=== PATIENT | female | born 1970 ===

== ENCOUNTER → 2024-11-10 | Outpatient (CLI) | payer MEDICARE, OTHER ==
[2024-11-10 13:09] LABS: BASOPHILS ABSOLUTE AUTO 0.01 K/mm3 (0.00-0.23); BASOPHILS PERCENT AUTO 0 % (0-2); EOSINOPHILS ABSOLUTE AUTO 0.07 K/mm3 (0.00-0.68); EOSINOPHILS PERCENT AUTO 1 % (0-6); Hematocrit 35.6 % (33.0-51.0); Hemoglobin 12.3 g/dL (11.5-16.0); IMMATURE GRAN ABSOLUTE AUTO 0.04 K/mm3 (0.00-0.10); IMMATURE GRAN PERCENT AUTO 1 % (0-1); LYMPHOCYTES ABSOLUTE AUTO 1.23 K/mm3 (0.84-5.20); LYMPHOCYTES PERCENT AUTO 21 % (21-46); MONOCYTES ABSOLUTE AUTO 0.43 K/mm3 (0.16-1.47); MONOCYTES PERCENT AUTO 7 % (4-13); Mean Corpuscular HGB Conc 34.6 g/dL (31.5-36.5); Mean Corpuscular Volume 88 fL (80-100); NEUTROPHILS ABSOLUTE AUTO 4.14 K/mm3 (1.96-9.15); NEUTROPHILS PERCENT AUTO 70 % (41-73); NRBC ABSOLUTE 0.00 K/mm3 (0.00-0.02); NRBC Auto 0.0 /100 WBC (0.0-0.2); Platelet Count 233 K/mm3 (150-400); RDW Coefficient Variation 15.4 % (11.7-14.2); RDW Standard Deviation 49.0 fL (35.1-46.3)
[2024-11-10 14:29] LABS: Alanine Aminotransfer (ALT/SGP 23.0 U/L (12-78); Albumin, Blood 3.5 g/dL (3.4-5.0); Albumin/Globulin Ratio 1.0 (0.8-1.8); Anion Gap 10.0 mmol/L (3-11); Aspartate Aminotrans (AST/SGOT 17.0 U/L (12-37); Bilirubin, Total 0.4 mg/dL (0.1-1.0); Blood Urea Nitrogen 6.0 mg/dL (8-24); CO2, Blood 28.0 mmol/L (21-32); Calcium, Blood 7.9 mg/dL (8.5-10.1); Chloride, Blood 104.0 mmol/L (98-108); Creatinine, Blood 0.69 mg/dL (0.40-1.00); Globulin, Blood 3.5 g/dL (2.2-4.0); Glucose, Blood 116.0 mg/dL (70-99); Potassium, Blood 3.0 mmol/L (3.5-5.5); Sodium, Blood 139.0 mmol/L (136-145); Total Protein, Blood 7.0 g/dL (6.4-8.2)
== END ==
LOC: LAB 12:51 → LAB SHORT 12:51
PROVIDERS: Student in an Organized Health Care Education/Training Program
DX: E11.51 Type 2 diabetes mellitus with diabetic peripheral angiopathy without gangrene (principal); R07.9 Chest pain, unspecified
CPT/HCPCS: 80053; 83036; 83880; 84484; 85025

== ENCOUNTER 2024-12-13 15:43 | Observation (INO) | payer MEDICARE, OTHER ==
[~2024-12-13] VITALS: Ht 175.3 cm; Wt 79.6 kg
[2024-12-13] MEDS ORDERED: Ondansetron HCl 2 MG / ML 2ML Vial IV PRN ×2 (16:00→19:35)
[2024-12-13 16:13] LABS: BASOPHILS ABSOLUTE AUTO 0.04 K/mm3 (0.00-0.23); BASOPHILS PERCENT AUTO 1 % (0-2); EOSINOPHILS ABSOLUTE AUTO 0.16 K/mm3 (0.00-0.68); EOSINOPHILS PERCENT AUTO 2 % (0-6); Hematocrit 34.5 % (33.0-51.0); Hemoglobin 11.8 g/dL (11.5-16.0); IMMATURE GRAN ABSOLUTE AUTO 0.04 K/mm3 (0.00-0.10); IMMATURE GRAN PERCENT AUTO 1 % (0-1); LYMPHOCYTES ABSOLUTE AUTO 2.18 K/mm3 (0.84-5.20); LYMPHOCYTES PERCENT AUTO 25 % (21-46); MONOCYTES ABSOLUTE AUTO 0.58 K/mm3 (0.16-1.47); MONOCYTES PERCENT AUTO 7 % (4-13); Mean Corpuscular HGB Conc 34.2 g/dL (31.5-36.5); Mean Corpuscular Volume 89 fL (80-100); NEUTROPHILS ABSOLUTE AUTO 5.87 K/mm3 (1.96-9.15); NEUTROPHILS PERCENT AUTO 66 % (41-73); NRBC ABSOLUTE 0.00 K/mm3 (0.00-0.02); NRBC Auto 0.0 /100 WBC (0.0-0.2); Platelet Count 219 K/mm3 (150-400); RDW Coefficient Variation 15.0 % (11.7-14.2); RDW Standard Deviation 48.9 fL (35.1-46.3)
[2024-12-13 17:29] LABS: Alanine Aminotransfer (ALT/SGP 23.0 U/L (12-78); Albumin, Blood 3.6 g/dL (3.4-5.0); Albumin/Globulin Ratio 1.1 (0.8-1.8); Anion Gap 7.0 mmol/L (3-11); Aspartate Aminotrans (AST/SGOT 18.0 U/L (12-37); Bilirubin, Total 0.3 mg/dL (0.1-1.0); Blood Urea Nitrogen 7.0 mg/dL (8-24); CO2, Blood 26.0 mmol/L (21-32); Calcium, Blood 9.3 mg/dL (8.5-10.1); Chloride, Blood 109.0 mmol/L (98-108); Creatinine, Blood 0.74 mg/dL (0.40-1.00); Globulin, Blood 3.2 g/dL (2.2-4.0); Glucose, Blood 101.0 mg/dL (70-99); Potassium, Blood 3.4 mmol/L (3.5-5.5); Sodium, Blood 139.0 mmol/L (136-145); Total Protein, Blood 6.8 g/dL (6.4-8.2)
[2024-12-13] MEDS ORDERED: Nitroglycerin 1 INCH/GM PKT TOP ONE (17:45)
[2024-12-13] MEDS ORDERED: FLU VACC TS2025-26(6MOS UP)/PF 45 MCG/0.5 ML SYRINGE IM SCH (19:35)
[2024-12-13] MEDS ORDERED: Metoclopramide HCl 5MG / ML 2ML Vial IV PRN (19:35)
[2024-12-13] MEDS ORDERED: Albuterol 2.5 MG/3 ML VIAL INH PRN (19:40)
[2024-12-13] MEDS ORDERED: Morphine Sulfate 4 MG/1 ML Injection IV PRN (20:25)
[2024-12-13] MEDS ORDERED: CLON1 PO (20:58)
[2024-12-13] MEDS ORDERED: TRAZ50 PO (21:00)
[2024-12-13] MEDS ORDERED: Insulin Glargine-Yfgn 100 Unit/mL 3 ML SYR SC SCH (21:00)
[2024-12-13] MEDS ORDERED: Insulin Glargine 100 Unit/ML 3 ML SYR SC SCH (21:00)
[2024-12-13 21:17] VITALS: BP 116/70
[2024-12-13 21:56] LABS: Source, Urine Clean Catch
[2024-12-13 22:04] LABS: Bilirubin, Urine Neg (Neg); Glucose Qualitative, Urine Neg (Neg); Ketones, Urine Neg (Neg); Leukocyte Esterase, Urine 1+ (Neg); Protein, Urine Neg (Neg); Specific Gravity, Urine 1.020 (1.003-1.022); Urobilinogen, Urine NORM (Normal)
[2024-12-13 22:09] LABS: Color, Urine Pale Yellow (P-Yellow)
[2024-12-13 22:10] LABS: Red Blood Cells, Urine 0-2 /hpf (0-2)
[2024-12-13] MEDS ORDERED: CefTRIAXone Sodium 1,000 MG in NS 100 ML IV SCH (23:14)
[2024-12-13] MEDS ORDERED: NS 1,000 ML IV SCH (23:30)
[2024-12-14] VITALS (8 sets, daily range): BP systolic 115–144; BP diastolic 64–93
[2024-12-14] MEDS ORDERED: Insulin Human Lispro 100 Units/ML 3ML Syringe SC SCH
[2024-12-14 04:03] LABS: BASOPHILS ABSOLUTE AUTO 0.02 K/mm3 (0.00-0.23); BASOPHILS PERCENT AUTO 0 % (0-2); EOSINOPHILS ABSOLUTE AUTO 0.19 K/mm3 (0.00-0.68); EOSINOPHILS PERCENT AUTO 3 % (0-6); Hematocrit 35.1 % (33.0-51.0); Hemoglobin 12.1 g/dL (11.5-16.0); IMMATURE GRAN ABSOLUTE AUTO 0.01 K/mm3 (0.00-0.10); IMMATURE GRAN PERCENT AUTO 0 % (0-1); LYMPHOCYTES ABSOLUTE AUTO 2.00 K/mm3 (0.84-5.20); LYMPHOCYTES PERCENT AUTO 32 % (21-46); MONOCYTES ABSOLUTE AUTO 0.51 K/mm3 (0.16-1.47); MONOCYTES PERCENT AUTO 8 % (4-13); Mean Corpuscular HGB Conc 34.5 g/dL (31.5-36.5); Mean Corpuscular Volume 90 fL (80-100); NEUTROPHILS ABSOLUTE AUTO 3.60 K/mm3 (1.96-9.15); NEUTROPHILS PERCENT AUTO 57 % (41-73); NRBC ABSOLUTE 0.00 K/mm3 (0.00-0.02); NRBC Auto 0.0 /100 WBC (0.0-0.2); Platelet Count 213 K/mm3 (150-400); RDW Coefficient Variation 15.1 % (11.7-14.2); RDW Standard Deviation 49.1 fL (35.1-46.3)
[2024-12-14 04:22] LABS: Prothrombin Time Results 11.4 Sec (9.7-11.5)
[2024-12-14 04:33] LABS: Alanine Aminotransfer (ALT/SGP 22.0 U/L (12-78); Albumin, Blood 3.4 g/dL (3.4-5.0); Albumin/Globulin Ratio 1.1 (0.8-1.8); Anion Gap 7.0 mmol/L (3-11); Aspartate Aminotrans (AST/SGOT 14.0 U/L (12-37); Bilirubin, Total 0.3 mg/dL (0.1-1.0); Blood Urea Nitrogen 5.0 mg/dL (8-24); CO2, Blood 26.0 mmol/L (21-32); Calcium, Blood 8.7 mg/dL (8.5-10.1); Chloride, Blood 109.0 mmol/L (98-108); Creatinine, Blood 0.71 mg/dL (0.40-1.00); Globulin, Blood 3.0 g/dL (2.2-4.0); Glucose, Blood 129.0 mg/dL (70-99); Magnesium, Blood 1.5 mg/dL (1.6-2.4); Potassium, Blood 3.7 mmol/L (3.5-5.5); Sodium, Blood 138.0 mmol/L (136-145); Total Protein, Blood 6.4 g/dL (6.4-8.2)
[2024-12-14] MEDS ORDERED: Mag Sulfate 1 GM/D5% 100ML 100 ML IV ONE (05:30)
--- NOTE | 2024-12-14 06:28 | NUR ---
SHIFT SUMMARY: PT ARRIVED TO UNIT AT 2044 WITH AT BEDSIDE. PT A&OX4 CALM AND COOPERATIVE. SB-SR HIGH 40S-60S. BP STABLE AND MAINTAINED >90% ON RA WHILE AWAKE. PT DESAT INTO MID 80 S WHILE SLEEPING. APPLIED 1L NC AND PT MAINTAINED >90%. PT ARRIVED WITH NITRO PASTE APPLIED. REMOVED D/T ANTICIPATION OF STRESS TEST IN AM. PT C/O LEFT CHEST PAIN 3 OUT 10. MEDICATED PER EMAR. PT REPORTS RELIEF OF CHEST PAIN AFTER MEDICATING. NS @ 75 ML/HR X1 INFUSING. SBA TO BATHROOM. PT CALLS APPROPRIATELY. POTASSIUM 3.7 AND MG 1.5. RESIDENT NOTIFIED AND ORDERED POTASSIUM AND MG REPLACEMENT. MEDICATED PER EMAR. PT REMAINED NPO AFTER MIDNIGHT. Q6 CBG COMPLETED. BED IS LOW AND LOCKED. CALL LIGHT WITHIN REACH. PLAN IS FOR STRESS TEST IN THE AM. CONTINUE WITH CURRENT PLAN OF CARE.
[2024-12-14] MEDS ORDERED: METF500 PO (12:31)
[2024-12-14] MEDS ORDERED: ATOR20 PO (12:31)
[2024-12-14] MEDS ORDERED: CLOP75 PO (12:31)
[2024-12-14] MEDS ORDERED: XARELTO2.5 M1 PO (12:32)
[2024-12-14] MEDS ORDERED: METO25ER PO (12:32)
[2024-12-14] MEDS ORDERED: PANT40 PO (12:32)
[2024-12-14] MEDS ORDERED: ONDA4ODT MM (12:34)
[2024-12-14] MEDS ORDERED: INSULANI SC (12:34)
[2024-12-14] MEDS ORDERED: TRULICITY0.75 MG/01 SC (12:35)
[2024-12-14] MEDS ORDERED: PRAZ2 PO ×2 (12:35→12:55)
[2024-12-14] MEDS ORDERED: CLON1 PO (12:44)
[2024-12-14] MEDS ORDERED: AMLODIPINE BESY10 MG PO (12:45)
[2024-12-14] MEDS ORDERED: DESVENLAFAXINE25 MG PO (12:50)
[2024-12-14] MEDS ORDERED: EZET10 PO (12:52)
[2024-12-14] MEDS ORDERED: ISOSORBIDE MONO60 MG PO (12:52)
[2024-12-14] MEDS ORDERED: OLAN5 PO (12:54)
[2024-12-14] MEDS ORDERED: TRAZ50 PO (12:55)
[2024-12-14] MEDS ORDERED: Cranberry425 MG PO (13:02)
[2024-12-14] MEDS ORDERED: Aminophylline 250MG / 10ML 10 ML Vial ONE (13:29)
--- NOTE | 2024-12-14 18:48 | NUR ---
SHIFT SUMMARY PATIENT AOX4 ABLE TO MAKE NEEDS KNOWN. SHE DOES COMPLAIN OF INTERMITTENT CP TREATED AND IMPROVED WITH PRN MEDS PER APR. SHE IS SBA TO THE RESTROOM AND TOLERATING HER MEALS. SHE DID HAVE AN EPISODE OF SEVERE CP 11/09 AT 10:27AM EKG DONE AND MORPHINE GIVEN HOSPITALIST AWARE PAIN IMPROVED TO 2/10. STRESS TEST COMPLETED TODAY.
[2024-12-14] MEDS ORDERED: Lactobacil 2-S.Thermo-Bifido 1 1 Cap PO SCH (21:00)
[2024-12-14] MEDS ORDERED: Cranberry Extract 250MG W/30 MG Vitamin C Tab PO SCH (21:00)
[2024-12-15 04:28] VITALS: BP 122/67
[2024-12-15 04:29] LABS: BASOPHILS ABSOLUTE AUTO 0.02 K/mm3 (0.00-0.23); BASOPHILS PERCENT AUTO 0 % (0-2); EOSINOPHILS ABSOLUTE AUTO 0.19 K/mm3 (0.00-0.68); EOSINOPHILS PERCENT AUTO 3 % (0-6); Hematocrit 37.4 % (33.0-51.0); Hemoglobin 12.5 g/dL (11.5-16.0); IMMATURE GRAN ABSOLUTE AUTO 0.01 K/mm3 (0.00-0.10); IMMATURE GRAN PERCENT AUTO 0 % (0-1); LYMPHOCYTES ABSOLUTE AUTO 1.94 K/mm3 (0.84-5.20); LYMPHOCYTES PERCENT AUTO 35 % (21-46); MONOCYTES ABSOLUTE AUTO 0.45 K/mm3 (0.16-1.47); MONOCYTES PERCENT AUTO 8 % (4-13); Mean Corpuscular HGB Conc 33.4 g/dL (31.5-36.5); Mean Corpuscular Volume 90 fL (80-100); NEUTROPHILS ABSOLUTE AUTO 2.92 K/mm3 (1.96-9.15); NEUTROPHILS PERCENT AUTO 53 % (41-73); NRBC ABSOLUTE 0.00 K/mm3 (0.00-0.02); NRBC Auto 0.0 /100 WBC (0.0-0.2); Platelet Count 207 K/mm3 (150-400); RDW Coefficient Variation 14.9 % (11.7-14.2); RDW Standard Deviation 48.7 fL (35.1-46.3)
[2024-12-15 04:51] LABS: Alanine Aminotransfer (ALT/SGP 26.0 U/L (12-78); Albumin, Blood 3.2 g/dL (3.4-5.0); Albumin/Globulin Ratio 1.1 (0.8-1.8); Anion Gap 6.0 mmol/L (3-11); Aspartate Aminotrans (AST/SGOT 18.0 U/L (12-37); Bilirubin, Total 0.3 mg/dL (0.1-1.0); Blood Urea Nitrogen 5.0 mg/dL (8-24); CO2, Blood 29.0 mmol/L (21-32); Calcium, Blood 8.7 mg/dL (8.5-10.1); Chloride, Blood 109.0 mmol/L (98-108); Creatinine, Blood 0.76 mg/dL (0.40-1.00); Globulin, Blood 3.0 g/dL (2.2-4.0); Glucose, Blood 105.0 mg/dL (70-99); Magnesium, Blood 1.9 mg/dL (1.6-2.4); Potassium, Blood 3.5 mmol/L (3.5-5.5); Sodium, Blood 140.0 mmol/L (136-145); Total Protein, Blood 6.2 g/dL (6.4-8.2)
--- NOTE | 2024-12-15 06:39 | NUR ---
SHIFT SUMMARY: PT A&OX4 CALM AND COOPERATIVE. ABLE TO MAKE NEEDS KNOWN AND CALLS APPROPRIATELY. PT C/O 06/09 LEFT CHEST PAIN THAT WAS ACCOMPANIED WITH NAUSEA AND DIAPHORETIC. MEDICATED PER EMAR AND PT REPORTED CHEST PAIN 03/11. NO SYNCOPAL EPISODE DURING SHIFT. HR SB-SR 50S-60S. BP STABLE. DESAT WHILE SLEEPING. APPLIED 1L NC AND PT MAINTAINED >90%. POTASSIUM 3.5. RESIDENT NOTIFIED. SBA TO BATHROOM. NO OTHER SIGNIFICANT EVENTS TO REPORT DURING SHIFT. BED IS LOW AND LOCKED. CALL LIGHT WITHIN REACH. CONTINUE WITH CURRENT PLAN OF CARE.
[2024-12-15 08:26] VITALS: BP 104/56
[2024-12-15] MEDS ORDERED: Isosorbide Mononitrate 60 MG TABCR PO SCH (09:00)
--- NOTE | 2024-12-15 11:03 | NUR ---
DISCHARGE SUMMARY DR DE LA CRUZ AT BEDSIDE THIS AM, PLANS FOR INCREASE DOSE OF IMDUR, ZIO PATCH AND DISCHARGE. PATIENT STATES HER HAS AN APPOINTMENT AT 11 IN [place] AND WOULD LIKE TO DISCHARGE PRIOR TO 9930; GOT PATIENT IN SHOWER, ZIO PATCH PLACED. EDUCATED PT ON DISCHARGE INSTRUCTIONS, FOLLOW UP APPOINTMENTS AND PRESCRIPTIONS. PRESCRIPTIONS SENT TO [facility] PER PT REQUEST. VSS. PT LEFT VIA WHEELCHAIR AT 0926.
[2024-12-18] MEDS ORDERED: Misc. Injectable SC SCH (14:00)
== END 2024-12-15 09:26 | disposition home or self-care (01) ==
LOC: ER 15:43 → PCU 15:44
PROVIDERS: Emergency Medicine; Family Medicine; Nurse Practitioner Acute Care; ADMIT Internal Medicine
DX: R07.89 Other chest pain (principal); R55 Syncope and collapse; R79.89 Other specified abnormal findings of blood chemistry; E11.51 Type 2 diabetes mellitus with diabetic peripheral angiopathy without gangrene; E87.6 Hypokalemia; I50.30 Unspecified diastolic (congestive) heart failure; J44.9 Chronic obstructive pulmonary disease, unspecified; F17.210 Nicotine dependence, cigarettes, uncomplicated; I25.10 Atherosclerotic heart disease of native coronary artery without angina pectoris; I44.0 Atrioventricular block, first degree; R00.1 Bradycardia, unspecified; Z79.01 Long term (current) use of anticoagulants; Z79.02 Long term (current) use of antithrombotics/antiplatelets; Z79.4 Long term (current) use of insulin; Z79.899 Other long term (current) drug therapy; Z95.820 Peripheral vascular angioplasty status with implants and grafts
CPT/HCPCS: 36415; 71046; 78452; 80053; 81001; 82947; 83690; 83735; 84484; 85025; 85379; 85610; 87077; 87086; 87186; 93005; 93010; 93017; 93246; 96365; 96366; 96375; 96376; 99285-25; A9270; A9500; G0378; J0280; J0696; J1815; J2270; J2405; J2765; J2785; J3475; J7030

== ENCOUNTER → 2024-12-26 | Outpatient (CLI) | payer MEDICARE, OTHER ==
[~2024-12-26] MED LIST: AMLODIPINE BESY10 MG PO; ATOR20 PO; CLON1 PO; CLOP75 PO; Cranberry425 MG PO; DESVENLAFAXINE25 MG PO; EZET10 PO; INSULANI SC; ISOSORBIDE MONO60 MG PO; METF500 PO; METO25ER PO; OLAN5 PO; ONDA4ODT MM; PANT40 PO; PRAZ2 PO; TRAZ50 PO; TRULICITY0.75 MG/01 SC; XARELTO2.5 M1 PO
[2024-12-26 19:08] LABS: Source, Urine Clean Catch
[2024-12-26 19:29] LABS: Bilirubin, Urine Neg (Neg); Color, Urine Yellow (P-Yellow); Glucose Qualitative, Urine Neg (Neg); Ketones, Urine Neg (Neg); Leukocyte Esterase, Urine 1+ (Neg); Protein, Urine 1+ (Neg); Specific Gravity, Urine 1.020 (1.003-1.022); Urobilinogen, Urine NORM (Normal)
[2024-12-26 20:34] LABS: Bacterial Vaginosis PCR Negative (NEGATIVE)
[2024-12-26 21:26] LABS: Candida Group, PCR DETECTED (NOT DETECT); Candida glabrata-krusei, PCR DETECTED (NOT DETECT)
== END ==
LOC: LAB 14:40 → LAB SHORT 14:40
PROVIDERS: Student in an Organized Health Care Education/Training Program
DX: N30.90 Cystitis, unspecified without hematuria (principal); N89.8 Other specified noninflammatory disorders of vagina
CPT/HCPCS: 81001; 81515; 87077; 87086; 87186